=== PATIENT | male | born 1990 | race Caucasian/White ===

== ENCOUNTER 2019-11-08 18:21 | Emergency (ER) | payer SELFPAY ==
[~2019-11-08] VITALS: Ht 170.2 cm; Wt 81.8 kg
[~2019-11-08 18:21] MED LIST: NOCURR
[2019-11-08 18:51] VITALS: BP 137/80
== END 2019-11-08 23:15 | disposition left against medical advice (07) ==
LOC: EMS 18:25
DX: R51 Headache (principal); Z53.21 Procedure and treatment not carried out due to patient leaving prior to being seen by health care provider